=== PATIENT | male | born 1985 | race Hispanic/Latino ===

== ENCOUNTER → 2016-10-24 | Outpatient (CLI) | payer BC ==
--- NOTE | 2016-10-24 17:08 | CR ---
EXAMINATION: Double contrast upper GI HISTORY: Evaluate anatomy COMPARISON: None TECHNIQUE: A standard double contrast upper GI was performed. FINDINGS: The patient swallowed barium without difficulty. The esophagus is normal in caliber withou t filling defect or stricture. Esophageal motility is within normal limits. Mild gastroesophageal re flux is noted. The stomach is normally distensible. No filling defect or ulceration. The rugal fold pattern is norm al. The duodenal bulb and sweep are normal. IMPRESSION: 1. Mild gastroesophageal reflux, otherwise normal upper GI.
== END ==
LOC: MW.DI 11:28
DX: Z01.818 Encounter for other preprocedural examination (principal); K21.9 Gastro-esophageal reflux disease without esophagitis
CPT/HCPCS: 74246; 74246-26

== ENCOUNTER 2020-02-15 18:55 | Emergency (ER) | payer OTHER ==
--- NOTE | 2020-02-15 20:25 | EDM.PDOC ---
ED HPI GENERAL MEDICAL PROBLEM - General Chief Complaint: General Stated Complaint: EXPOSED TO COVID Time Seen by Provider: 02/15/20 20:17 - History of Present Illness INITIAL COMMENTS - FREE TEXT/NARRATIVE: History of present illness: [] Patient just got back from visiting his cousin in [place]. He had multiple encounters with his cousin up until 24 hours ago. His cousin tested positive in the last 48 hours for COVID-19. Patient has no symptoms. Review of systems: As per history of present illness and below otherwise all systems reviewed and negative. Past medical history: As per history of present illness and as reviewed below otherwise noncontributory. Surgical history: As per history of present illness and as reviewed below otherwise noncontributory. Social history: No reported history of drug or alcohol abuse. Family history: As per history of present illness and as reviewed below otherwise noncontributory. Physical exam: Constitutional - well developed, well-nourished and in no acute distress HEENT - normocephalic, no evidence of trauma - external nose and mouth normal - no mass in neck and no JVD - mucosae moist EYES - full EOM, PERRL, no icterus - no evidence of inflammation, injection, or drainage Respiratory - no respiratory distress, equal bilateral expansion, lungs clear to auscultation and no abnormal lung sounds Cardiovascular - Regular Rhythm with S1 and S2 appreciated and no murmur, gallop or rub. GI - abdomen soft without distension or organomegaly - normal bowel sounds - no guard or rebound Musculoskeletal no gross deformity of long bones or joints - no tenderness, s welling or edema Neurologic - Alert and oriented times four - CN II-XII grossly intact - motor sensory and coordination symmetrically normal Psychiatric - appropriate mood and affect with normal thought content Hematologic - No petechiae or purpura - mucosa appropriate color and sclera not pale - normal nail bed color and refill Integument - no rash or evidence of trauma - normal turgor Diagnostics: [] Therapeutics: [] Impression: [] Plan: [] Definitive disposition and diagnosis as appropriate pending reevaluation and review of above. - Related Data Allergies Allergy/AdvReac Type Severity Reaction Status Date / Time No Known Allergies Allergy Verified 02/15/20 19:46 Home Meds: Home Meds . [No Known Home Meds] 02/15/20 [History] ED ROS GENERAL - Review of Systems Review Of Systems: Comprehensive ROS is negative, except as noted in HPI. ED EXAM, GENERAL - Physical Exam Exam: See Below Free Text/Narrative:: Physical exams in the HPI Course - Vital Signs Last Recorded V/S: Last Vital Signs Temp 97 F 02/15/20 19:30 Pulse 83 02/15/20 19:30 Resp 18 02/15/20 19:30 BP 149/102 H 02/15/20 19:30 Pulse Ox 98 02/15/20 19:30 - Orders/Labs/Meds Labs: Laboratory Tests 02/15/20 Range/Units 20:20 COVID-19 (PRICILLA) NEGATIVE (NEGATIVE) Departure - Departure Time of Disposition: 21:07 Disposition: Home, Self-Care 01 Condition: Good Clinical Impression: Exposure to COVID-19 virus - Discharge Information Instructions: COVID-19 Referrals: PCP,None [Primary Care Provider] - Forms: ED Department Discharge Additional Instructions: The following information is given to patients seen in the emergency department who are being discharged to home. This information is to outline your options for follow-up care. We provide all patients seen in our emergency department with a follow-up referral. The need for follow-up, as well as the timing and circumstances, are variable depending upon the specifics of your emergency department visit. If you don't have a primary care physician on staff, we will provide you with a referral. We always advise you to contact your personal physician following an emergency department visit to inform them of the circumstance of the visit and for follow-up with them and/or the need for any referrals to a consulting specialist. The emergency department will also refer you to a specialist when appropriate. This referral assures that you have the opportunity for follow-up care with a specialist. All of these measure are taken in an effort to provide you with optimal care, which includes your follow-up. Under all circumstances we always encourage you to contact your private physician who remains a resource for coordinating your care. When calling for follow-up care, please make the office aware that this follow-up is from your recent emergency room visit. If for any reason you are refused follow-up, please contact the [facility] Emergency Department at and asked to speak to the emergency department charge nurse. [facility] [id number], [place] [address] [facility] [address] [place] [id number] Sepsis Event Note (ED) - Evaluation Sepsis Screening Result: No Definite Risk - Focused Exam Vital Signs: Vital Signs Temp Pulse Resp BP Pulse Ox 02/15/20 19:30 97 F 83 18 149/102 H 98
== END 2020-02-15 21:24 | disposition home or self-care (01) ==
LOC: MW.ED 18:55
DX: Z20.828 Contact with and (suspected) exposure to other viral communicable diseases (principal)
CPT/HCPCS: 99282; U0002